=== PATIENT | male | born 1980 | race Caucasian/White ===

== ENCOUNTER 2018-03-25 18:47 | Outpatient (CLI) | payer OTHER | END 2018-03-25 18:48 | disposition critical access hospital (66) | LOC: EMS 18:47 | PROVIDERS: ATTEND Surgery | DX: S81.041A Puncture wound with foreign body, right knee, initial encounter (principal); W29.4XXA Contact with nail gun, initial encounter; Y92.69 Other specified industrial and construction area as the place of occurrence of the external cause; Y99.0 Civilian activity done for income or pay | CPT/HCPCS: A0425; A0429 ==

== ENCOUNTER 2018-03-25 19:07 | Emergency (ER) | payer OTHER ==
[2018-03-25 19:33] LABS: BASOPHILS # (AUTO) 0.1 10^3/uL (0.0-0.1); BASOPHILS % (AUTO) 1.1 %; EOSINOPHILS # (AUTO) 0.1 10^3/uL (0.0-0.7); EOSINOPHILS % (AUTO) 1.4 %; LYMPHOCYTES # (AUTO) 2.4 10^3/uL (1.5-3.5); LYMPHOCYTES % (AUTO) 23.9 %; MEAN CORPUSCULAR HEMOGLOBIN 31.2 pg (27.0-31.0); MEAN CORPUSCULAR HGB CONC 33.9 g/dL (32.0-36.0); MEAN CORPUSCULAR VOLUME 92.1 fL (80.0-94.0); MEAN PLATELET VOLUME 9.3 fL (7.4-11.4); MONOCYTES # (AUTO) 0.8 10^3/uL (0.0-1.0); MONOCYTES % (AUTO) 8.1 %; NEUTROPHILS # (AUTO) 6.5 10^3/uL (1.5-6.6); NEUTROPHILS % (AUTO) 65.5 %; PLT - PLATELET COUNT 216 10^3/uL (130-450); RED BLOOD COUNT 4.49 10^6/uL (4.70-6.10); RED CELL DISTRIBUTION WIDTH 13.4 % (12.0-15.0); WHITE BLOOD COUNT 9.9 x10^3/uL (4.8-10.8)
[2018-03-25 19:47] LABS: ALBUMIN 4.4 g/dL (3.2-5.5); ALBUMIN/GLOBULIN RATIO 1.6 (1.0-2.2); BILIRUBIN,TOTAL 0.7 mg/dL (0.2-1.0); CALCIUM 9.1 mg/dL (8.5-10.3); CREATININE 0.9 mg/dL (0.6-1.2); TOTAL PROTEIN 7.1 g/dL (6.7-8.2)
--- NOTE | 2018-03-25 19:58 | XRAY Report ---
Procedure Date: 03/25/2018 Accession Number: [id number] / [id number] Procedure: XR - Knee 4 View RT CPT Code: FULL RESULT: EXAM: RIGHT KNEE RADIOGRAPHY EXAM DATE: 03/25/2018 07:41 PM. CLINICAL HISTORY: Nail in knee. COMPARISON: None. TECHNIQUE: 4 views. FINDINGS: Bones: No definite acute fracture. The nail overlies the lateral tibial plateau without definite cortical disruption. Joints: Normal. No effusion. No subluxation. Soft Tissues: Foreign body consistent with a nail projects laterally on the frontal projections and in the intracondylar notch on the lateral projection IMPRESSION: Nail in the soft tissues without definite acute fracture. The nail is likely just lateral to the proximal tibia. RADIA
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
[2018-03-25] MEDS: HYDROcod/ACETAM 5/325 MG TABLET PO STA ×2 (20:48→21:47)
[2018-03-25] MEDS: TETANUS/DIPHTHERIA TOXOID 0.5 ML SYRINGE IM ONE (20:51)
[2018-03-25 22:29] VITALS: BP 125/86
[2018-03-25] MEDS: SULFAM/TRIM 800/160 Prepack 2 PO ONE (22:30)
[2018-03-25] MEDS: HYDROcod/ACET 5/325 Prepack 4 PO STA (22:30)
== END 2018-03-25 22:45 | disposition home or self-care (01) ==
LOC: ED 19:07
DX: S81.041A Puncture wound with foreign body, right knee, initial encounter (principal); Z23 Encounter for immunization; W29.4XXA Contact with nail gun, initial encounter; Y99.0 Civilian activity done for income or pay
CPT/HCPCS: 10120; 1040M; 36415; 73564; 80053; 83690; 85025; 90471; 90714; 99283; 99284; A9270